=== PATIENT | male | born 1990 | race Two or more races ===

== ENCOUNTER 2018-12-19 15:19 | Emergency (ER) | payer SELFPAY ==
[~2018-12-19] VITALS: Ht 185.4 cm; Wt 84.0 kg
[2018-12-19 15:24] VITALS: BP 132/77
[2018-12-19] MEDS ORDERED: SODIUM CHLORIDE 0.9% 1,000 ML IV ONE (16:03)
[2018-12-19 17:33] LABS: HEMATOCRIT. 43.7 % (42.0-52.0); HEMOGLOBIN. 14.8 g/dL (14.0-18.0); MEAN CORPUSCULAR HEMOGLOBIN 32.8 pg (28.0-32.0); MEAN CORPUSCULAR VOLUME 96.7 fL (80.0-94.0); MEAN PLATELET VOLUME 8.9 fl (7.4-10.4); PLATELET 210 x1000/uL (130-400); RED BLOOD CELL COUNT 4.52 mill/uL (4.7-6.1); RED CELL DISTRIBUTION WIDTH 13.6 % (11.6-14.6)
[2018-12-19 17:34] LABS: CHLORIDE 103 mEq/L (98-107)
[2018-12-19 17:38] LABS: ETHANOL BLOOD 56 mg/dL
[2018-12-19 18:01] LABS: PLATELET ESTIMATE NORMAL
== END 2018-12-19 19:11 | disposition left against medical advice (07) ==
LOC: ER 15:19
DX: F10.988 Alcohol use, unspecified with other alcohol-induced disorder (principal); R41.82 Altered mental status, unspecified; Y90.2 Blood alcohol level of 40-59 mg/100 ml; F91.8 Other conduct disorders
CPT/HCPCS: 36415; 80053; 84484; 85025; 87186; 99283; J7030

== ENCOUNTER 2019-09-24 20:01 | Emergency (ER) | payer MEDICAID, OTHER ==
[~2019-09-24] VITALS: Ht 175.3 cm; Wt 63.0 kg
[2019-09-24] MEDS ORDERED: CLINDAMYCIN HCL 150MG CAPSULE PO ONE (21:30)
[2019-09-24] MEDS ORDERED: KETOROLAC 60MG/2ML VIAL IM ONE (21:30)
[2019-09-24] MEDS ORDERED: HYDROCODONE/ACETAMINOPHEN 5/325MG TABLET PO ONE (21:30)
[2019-09-24 22:03] VITALS: BP 124/80
== END 2019-09-24 22:07 | disposition home or self-care (01) ==
LOC: ER 20:01
DX: K08.89 Other specified disorders of teeth and supporting structures (principal); R03.0 Elevated blood-pressure reading, without diagnosis of hypertension
CPT/HCPCS: 96372; 99283; J1885

== ENCOUNTER 2019-10-02 17:17 | Emergency (ER) | payer MEDICAID ==
[~2019-10-02] VITALS: Ht 175.3 cm; Wt 65.0 kg
[2019-10-02 17:54] VITALS: BP 122/87
== END 2019-10-02 20:07 | disposition left against medical advice (07) ==
LOC: ER 18:33
DX: Z53.21 Procedure and treatment not carried out due to patient leaving prior to being seen by health care provider (principal)

== ENCOUNTER 2019-10-06 08:47 | Inpatient (IN) | payer MEDICAID ==
[~2019-10-06] VITALS: Ht 175.3 cm; Wt 66.7 kg
[2019-10-06] MEDS ORDERED: ASPIRIN 81MG TABLET PO ONE (09:45)
[2019-10-06 10:05] LABS: BASOPHILS % 0.4 % (0.0-2.0); EOSINOPHILS % 3.1 % (0.0-5.0); HEMATOCRIT. 44.3 % (42.0-52.0); HEMOGLOBIN. 15.4 g/dL (14.0-18.0); LYMPHOCYTES % 17.3 % (20.0-50.0); MEAN CORPUSCULAR HEMOGLOBIN 32.3 pg (28.0-32.0); MEAN CORPUSCULAR VOLUME 92.8 fL (80.0-94.0); MEAN PLATELET VOLUME 7.2 fl (7.4-10.4); MONOCYTES % 4.9 % (2.0-8.0); NEUTROPHILS % 74.3 % (40.0-76.0); PLATELET 277 x1000/uL (130-400); RED BLOOD CELL COUNT 4.78 mill/uL (4.7-6.1); RED CELL DISTRIBUTION WIDTH 12.9 % (11.6-14.6)
[2019-10-06 10:31] LABS: CHLORIDE 98 mEq/L (98-107)
[2019-10-06] MEDS ORDERED: CLONIDINE 0.1MG TABLET PO PRN (14:30)
[2019-10-06] MEDS ORDERED: ACETAMINOPHEN 325MG TABLET PO PRN (14:30)
[2019-10-06] MEDS ORDERED: DIPHENHYDRAMINE 50MG/ML VIAL IV PRN (14:30)
[2019-10-06] MEDS ORDERED: IPRATROPIUM/ALBUTEROL 0.5-3(2.5)MG/3ML NEB HHN PRN (14:30)
[2019-10-06] MEDS ORDERED: ONDANSETRON HCL 4MG/2ML INJ IV PRN (14:30)
[2019-10-06] MEDS ORDERED: MAGNESIUM/ALUMINUM HYDROXIDE/SIMETHICONE 30ML UDC PO PRN (14:30)
[2019-10-06 14:50] LABS: *BENZODIAZEPINES SCREEN URINE NEGATIVE (NEGATIVE); *COCAINE SCREEN URINE NEGATIVE (NEGATIVE)
[2019-10-06 14:51] LABS: *AMPHETAMINES SCREEN URINE NEGATIVE (NEGATIVE); *BARBITURATES SCREEN URINE NEGATIVE (NEGATIVE); CANNABINOID URINE SCREEN NEGATIVE (NEGATIVE); METHADONE URINE SCREEN NEGATIVE (NEGATIVE); OPIATES URINE SCREEN NEGATIVE (NEGATIVE); PHENCYCLIDINE URINE SCREEN NEGATIVE (NEGATIVE)
[2019-10-06 15:10] LABS: PHOSPHORUS 2.9 mg/dL (2.5-4.9)
[2019-10-06 16:45] VITALS: BP 115/75
[2019-10-06 17:00] VITALS: BP 115/75
[2019-10-06 19:30] VITALS: BP 120/86
[2019-10-06 20:00] VITALS: BP 116/70
[2019-10-06] MEDS: METOPROLOL TARTRATE 25MG TABLET PO SCH (21:00)
[2019-10-06 22:00] VITALS: BP 108/70
[2019-10-06] MEDS: ENOXAPARIN 40MG/0.4ML SYR SUBCUT SCH (23:03)
[2019-10-06] MEDS: PANTOPRAZOLE 40MG DR TABLET PO SCH (23:04)
[2019-10-07] VITALS: BP 120/87
[2019-10-07 04:00] VITALS: BP 103/73
[2019-10-07 06:27] LABS: BASOPHILS % 0.7 % (0.0-2.0); HEMATOCRIT. 41.1 % (42.0-52.0); HEMOGLOBIN. 14.7 g/dL (14.0-18.0); LYMPHOCYTES % 37.8 % (20.0-50.0); MEAN CORPUSCULAR HEMOGLOBIN 32.7 pg (28.0-32.0); MEAN CORPUSCULAR VOLUME 91.5 fL (80.0-94.0); MEAN PLATELET VOLUME 7.9 fl (7.4-10.4); MONOCYTES % 4.3 % (2.0-8.0); NEUTROPHILS % 52.2 % (40.0-76.0); PLATELET 328 x1000/uL (130-400); RED BLOOD CELL COUNT 4.49 mill/uL (4.7-6.1)
[2019-10-07 06:39] LABS: CHLORIDE 101 mEq/L (98-107)
[2019-10-07] MEDS: PANTOPRAZOLE 40MG DR TABLET PO SCH ×2 (06:44→21:15)
[2019-10-07 06:46] LABS: LDL CHOLESTEROL 88 mg/dL (5-100)
[2019-10-07 06:47] LABS: HDL CHOLESTEROL 38 mg/dL (40-59)
[2019-10-07 08:31] VITALS: BP 114/64
[2019-10-07] MEDS: METOPROLOL TARTRATE 25MG TABLET PO SCH ×2 (08:36→21:00)
[2019-10-07 12:05] VITALS: BP 113/82
[2019-10-07] MEDS ORDERED: POTASSIUM CHLORIDE 20MEQ TABLET SR PO NR (14:00)
[2019-10-07 16:41] VITALS: BP 105/68
[2019-10-07 16:43] LABS: CHLORIDE 101 mEq/L (98-107)
[2019-10-07] MEDS ORDERED: MAGNESIUM 2 G PREMIX 50 ML IV SCH (17:00)
[2019-10-07] MEDS: ENOXAPARIN 40MG/0.4ML SYR SUBCUT SCH (17:36)
[2019-10-07 19:54] VITALS: BP 110/67
[2019-10-08] VITALS (7 sets, daily range): BP systolic 97–113; BP diastolic 60–74
[2019-10-08] MEDS: PANTOPRAZOLE 40MG DR TABLET PO SCH ×2 (06:36→22:30)
[2019-10-08 06:58] LABS: CHLORIDE 102 mEq/L (98-107)
[2019-10-08 07:11] LABS: HEMATOCRIT. 39.9 % (42.0-52.0); HEMOGLOBIN. 14.2 g/dL (14.0-18.0); MEAN CORPUSCULAR HEMOGLOBIN 32.4 pg (28.0-32.0); MEAN CORPUSCULAR VOLUME 90.8 fL (80.0-94.0); PLATELET 348 x1000/uL (130-400); RED BLOOD CELL COUNT 4.39 mill/uL (4.7-6.1); RED CELL DISTRIBUTION WIDTH 13.1 % (11.6-14.6)
[2019-10-08] MEDS: ARIPIPRAZOLE 5MG TABLET PO SCH ×2 (09:00→18:07)
[2019-10-08] MEDS: CITALOPRAM HYDROBROMIDE 10MG TABLET PO SCH ×2 (09:00→18:09)
[2019-10-08] MEDS: METOPROLOL TARTRATE 25MG TABLET PO SCH ×2 (09:00→16:00)
[2019-10-08] MEDS ORDERED: PANT40TA4 PO (11:34)
[2019-10-08] MEDS ORDERED: METO25TA6 PO (11:34)
[2019-10-08] MEDS ORDERED: ABIL5 PO (11:34)
[2019-10-08] MEDS ORDERED: CITA10TA16 PO (11:34)
[2019-10-08] MEDS: ENOXAPARIN 40MG/0.4ML SYR SUBCUT SCH (18:11)
[2019-10-09] VITALS: BP 123/63
[2019-10-09 04:00] VITALS: BP 104/65
[2019-10-09 05:31] LABS: PLATELET ESTIMATE NORMAL
[2019-10-09] MEDS: PANTOPRAZOLE 40MG DR TABLET PO SCH ×2 (06:25→21:29)
[2019-10-09 08:00] VITALS: BP 104/68
[2019-10-09] MEDS: METOPROLOL TARTRATE 25MG TABLET PO SCH ×2 (09:00→21:29)
[2019-10-09 12:00] VITALS: BP 113/69
[2019-10-09] MEDS: ENOXAPARIN 40MG/0.4ML SYR SUBCUT SCH (18:00)
[2019-10-09 20:00] VITALS: BP 117/68
[2019-10-10 00:14] VITALS: BP 111/68
[2019-10-10 04:00] VITALS: BP 115/67
[2019-10-10] MEDS: PANTOPRAZOLE 40MG DR TABLET PO SCH ×2 (06:22→21:11)
[2019-10-10 08:08] VITALS: BP 111/82
[2019-10-10] MEDS: ARIPIPRAZOLE 5MG TABLET PO SCH (09:00)
[2019-10-10] MEDS: CITALOPRAM HYDROBROMIDE 10MG TABLET PO SCH (10:04)
[2019-10-10] MEDS: METOPROLOL TARTRATE 25MG TABLET PO SCH ×2 (10:04→21:00)
[2019-10-10] MEDS: ENOXAPARIN 40MG/0.4ML SYR SUBCUT SCH (17:55)
[2019-10-10 20:00] VITALS: BP 107/70
[2019-10-11 00:02] VITALS: BP 104/65
[2019-10-11 04:05] VITALS: BP 110/80
[2019-10-11] MEDS: PANTOPRAZOLE 40MG DR TABLET PO SCH (06:08)
[2019-10-11] MEDS: ARIPIPRAZOLE 5MG TABLET PO SCH (09:00)
[2019-10-11 10:00] VITALS: BP 126/69
[2019-10-11] MEDS: METOPROLOL TARTRATE 25MG TABLET PO SCH (10:14)
[2019-10-11] MEDS: CITALOPRAM HYDROBROMIDE 10MG TABLET PO SCH (10:14)
[2019-10-11 11:36] VITALS: BP 126/69
[2019-10-11] MEDS ORDERED: ABIL5 MT (12:48)
[2019-10-11] MEDS ORDERED: PANT40TA4 MT (12:48)
[2019-10-11] MEDS ORDERED: METO-385 MT (12:48)
[2019-10-11] MEDS ORDERED: CITA20TA19 MT (12:48)
== END 2019-10-11 13:00 | disposition home or self-care (01) | DRG 243 ==
LOC: ER 08:47 → 6WST 14:08 → ENRESERV 15:34
PROVIDERS: ADMIT Internal Medicine; ATTEND Internal Medicine
DX: K21.9 Gastro-esophageal reflux disease without esophagitis (principal); E83.42 Hypomagnesemia; I24.9 Acute ischemic heart disease, unspecified; E87.1 Hypo-osmolality and hyponatremia
CPT/HCPCS: 36415; 71045; 80048; 80061; 80305; 83735; 83880; 84100; 84443; 84484; 93005; 93306; 93970; 99285; J1650; J3475